=== PATIENT | male | born 1950 | race African-American/Black ===

== ENCOUNTER 2018-01-25 16:13 | Inpatient (IN) | payer OTHER ==
[~2018-01-25] VITALS: Ht 185.4 cm; Wt 110.4 kg
[2018-01-25] MEDS ORDERED: SODIUM CHLORIDE 0.9% 1000ML 1,000 ML IV STA ×2 (16:24→16:29)
[2018-01-25] MEDS ORDERED: CEFTRIAXONE SOD 1 GM VIAL IV ONE (16:30)
[2018-01-25] MEDS ORDERED: PHENAZOPYRIDINE HCL 100 MG TAB PO ONE (16:30)
[2018-01-25] MEDS ORDERED: ACETAMINOPHEN 325 MG TAB PO ONE (16:30)
[2018-01-25 17:01] LABS: BASOPHILS % 0.2 % (0.0-1.0); EOSINOPHILS % 0.2 % (0.0-6.0); HEMATOCRIT 37.9 % (38.2-49.6); HEMOGLOBIN 12.3 g/dL (14.0-18.0); LYMPHOCYTES # (AUTO) 0.5 (1.0-3.2); LYMPHOCYTES % 8.6 % (18.0-39.1); MEAN CORPUSCULAR HEMOGLOBIN 28.9 pg (28-32); MEAN CORPUSCULAR HGB CONC 32.5 g/dL (31-35); MEAN CORPUSCULAR VOLUME 89.2 fL (81-99); MONOCYTES # (AUTO) 0.9 (0.2-0.8); MONOCYTES % 15.3 % (4.4-11.3); NEUTROPHILS # (AUTO) 4.2 (2.1-6.9); NEUTROPHILS % 75.3 % (38.7-80.0); PLATELET COUNT 104 x10e3/uL (140-360); RED BLOOD COUNT 4.25 x10e6/uL (4.3-5.7); RED CELL DISTRIBUTION WIDTH 15.2 % (11.7-14.4)
[2018-01-25 17:04] LABS: BILIRUBIN,URINE NEGATIVE (NEGATIVE); CLARITY,URINE SL CLOUDY (CLEAR); COLOR,URINE YELLOW (YELLOW); KETONES,URINE NEGATIVE (NEGATIVE); LEUKOCYTE ESTERASE ,URINE TRACE (NEGATIVE); NITRITE,URINE NEGATIVE (NEGATIVE); PROTEIN,URINE DIPSTICK 1+ (NEGATIVE); URINE UROBILINOGEN 0.2 mg/dL (0.2 - 1)
[2018-01-25 17:14] LABS: BACTERIA,URINE FEW /HPF; EPITHELIAL CELLS,URINE FEW /LPF
[2018-01-25 17:20] LABS: ALBUMIN 3.1 g/dL (3.5-5.0); ALBUMIN/GLOBULIN RATIO 0.6 (0.8-2.0); ANION GAP 12.4 mmol/L (8-16); CALCIUM 9.4 mg/dL (8.4-10.2); CREATININE, SERUM 1.44 mg/dL (0.72-1.25); POTASSIUM 3.4 mmol/L (3.5-5.1)
[2018-01-25] MEDS ORDERED: CEFTRIAXONE SOD 1 GM VIAL IV SCH (18:30)
[2018-01-25] MEDS: SODIUM CHLORIDE 0.9% 1000ML 1,000 ML IV SCH (18:54)
[2018-01-25 20:00] VITALS: BP 149/86
[2018-01-25 20:13] VITALS: BP 149/86
[2018-01-26] VITALS (9 sets, daily range): BP systolic 131–150; BP diastolic 75–95
[2018-01-26] MEDS ORDERED: DICLOFENAC POTA50 MG PO (00:44)
[2018-01-26] MEDS ORDERED: VENLAFAXINE HCL75 M2 PO (00:44)
[2018-01-26] MEDS ORDERED: OMEPRAZOLE40 MG PO (00:44)
[2018-01-26] MEDS ORDERED: LISINOPRIL20 MG PO (00:44)
[2018-01-26] MEDS ORDERED: SIMVASTATIN40 MG PO (00:44)
[2018-01-26] MEDS ORDERED: METOPROLOL SUCC25 MG PO (00:44)
[2018-01-26] MEDS ORDERED: TYLENOL WITH C1 EACH PO (00:44)
[2018-01-26] MEDS ORDERED: MOTRIN200 MG PO (00:44)
[2018-01-26] MEDS: CEFTRIAXONE SOD 1 GM VIAL IV SCH ×2 (06:25→17:26)
[2018-01-26] MEDS: SODIUM CHLORIDE 0.9% 1000ML 1,000 ML IV SCH (08:24)
[2018-01-26] MEDS: PHENAZOPYRIDINE HCL 100 MG TAB PO SCH ×3 (08:24→17:26)
[2018-01-26] MEDS ORDERED: ACETAMINOPHEN/CODEINE 300MG - 30MG TAB PO PRN (09:00)
[2018-01-26] MEDS ORDERED: PANTOPRAZOLE SOD 40 MG TABEC PO PRN (09:00)
[2018-01-26] MEDS ORDERED: DIATRIZOATE MEGL/DIATRIZOA SOD 30 ML BTL PO ONE (09:07)
--- NOTE | 2018-01-26 09:37 | History and Physical ---
The patient is admitted on observation. PRIMARY CARE PHYSICIAN: Dr. Eusebia Coffman. CHIEF COMPLAINT: Fever and urinary frequency. HISTORY OF PRESENT ILLNESS: Patient is a 67-year-old male who came to the hospital with a fever. The fever started approximately last Wednesday. He came in with a temperature of 100.7. The patient was initiated on oral antibiotics outpatient, but did not improve. The patient is stable. He does have history of dyslipidemia and hypertension. The patient also has osteoarthritis. The fever has now broken. The urine culture is still pending. The patient is otherwise stable. PAST MEDICAL HISTORY: Hypertension, dyslipidemia, and osteoarthritis. PAST SURGICAL HISTORY: Noncontributory. SOCIAL HISTORY: Patient lives with his . He does not smoke or use alcohol. No recreational drugs. ALLERGIES: NO KNOWN ALLERGIES. HOME MEDICATIONS: List is reviewed. REVIEW OF SYSTEMS: Increasing urinary frequency, fever. No chest pain or shortness of breath. No abdominal pain. PHYSICAL EXAMINATION VITAL SIGNS: Temperature is 98. T-max on admission was 100.7. Pulse rate is 95. Respirations 18. Blood pressure 149/86. GENERAL: The patient is not in acute distress. He is awake. HEENT: Normocephalic, atraumatic. NECK: Supple grossly. PULMONARY: Clear bilaterally. CARDIOVASCULAR: Regular rate and rhythm. ABDOMEN: Soft, non-distention, no guarding. No rebound. Positive bowel sounds. EXTREMITIES: No cyanosis or edema. NEUROLOGIC: No focal deficit. Moving all extremities, awake, alert times 4. LABORATORY: Sodium 132, potassium 3.4, chloride 101, bicarb 22, BUN 14, creatinine 1.4, and glucose 113. WBC 5.5, hemoglobin 12, hematocrit 38, and platelets 104,000. Urinalysis: Cloudy urine with 1+ protein, 2+ blood. Negative nitrites. Leukocyte esterase trace. Bacteria few. IMPRESSIONS 1. Prostatitis associated with cystitis most likely. 2. Fever, resolved. 3. Electrolyte disorder mildly. Will be corrected. PLAN: Continue with Rocephin for now. Will obtain a CT scan of abdomen and pelvis without IV contrast. We will check the urine culture and narrow the antibiotics. Patient will remain on observation, she will be able to go home within 24 hours. Job#: [id number]
[2018-01-26] MEDS: METOPROLOL SUCCINATE 25 MG TAB XL PO SCH (09:52)
[2018-01-26] MEDS: SOD CHL 0.45%/POT CHL 20MEQ 1,000 ML IV SCH ×2 (09:52→18:31)
[2018-01-26] MEDS: VENLAFAXINE HCL 75 MG CAPCR PO SCH (09:52)
--- NOTE | 2018-01-26 11:38 | Diagnostic Imaging Report ---
PROCEDURE: CT ABDOMEN AND PELVIS WITHOUT CONTRAST TECHNIQUE: The abdomen and pelvis were scanned utilizing a multidetector helical scanner from the diaphragm to the lesser trochanter after the oral administration of Gastroview. Coronal and sagittal multiplanar reformations were obtained. COMPARISON: None. INDICATIONS: FEVER/ URINARY TRACT INFECTION FINDINGS: LOWER THORAX: Normal. HEPATOBILIARY: There is a 7.6 x 4.7 cm hypodense lesion in segment VII of the liver (series 2, image 18). This cannot be further characterized without intravenous contrast. No biliary ductal dilatation. SPLEEN: Spleen is mildly enlarged, measuring 14.9 cm in craniocaudal dimension. PANCREAS: No focal masses or ductal dilatation. ADRENALS: No adrenal nodules. KIDNEYS/URETERS: No hydronephrosis. Bilateral perinephric stranding is nonspecific. There is a 4.0 x 7.3 cm complex, lobulated cystic mass arising from the interpolar region of the left kidney (series 2, image 41). A 1.7 x 1.7 cm complex cystic lesion also arises from the interpolar region of the right kidney. A 4 mm nonobstructing stone is present in the upper pole of the left kidney (series 2, image 35). A 2 mm nonobstructing stone is present in the interpolar region of the left kidney (image 41). PELVIC ORGANS/BLADDER: Mild enlargement of the prostate. The bladder is grossly unremarkable. PERITONEUM / RETROPERITONEUM: No free air or fluid. LYMPH NODES: No lymphadenopathy. VESSELS: Moderator atherosclerotic calcifications of the aorta and its branches. GI TRACT: No distention or wall thickening. There are scattered sigmoid diverticula without evidence of acute inflammation. The appendix is normal. BONES AND SOFT TISSUES: Nonspecific sclerotic lesion in the right lateral sixth rib (series 2, image 14). Multilevel degenerative changes of the lower lumbar spine. L3 vertebral body hemangioma. IMPRESSION: 1. 7.3 cm complex cystic mass arising from the left kidney. This is suspicious for neoplasm but is not completely characterized on this examination. Recommend renal protocol CT or MRI (with and without contrast) for further evaluation. 2. 7.6 cm hypodense lesion in the right hepatic lobe. This is also not completely characterized. It is possible that we could obtain more information from the above mentioned renal protocol CT. Otherwise MRI would be necessary for evaluation. 3. Nonobstructing stones in the left kidney. 4. Nonspecific sclerotic lesion in the right sixth rib. Recommend attention on followup. Dictated by: Seun Deluca M.D. on 01/26/2018 at 11:44 Electronically approved by: Seun Deluca M.D. on 01/26/2018 at 11:44
[2018-01-26] MEDS: SIMVASTATIN 40 MG TAB PO SCH (20:06)
[2018-01-27] VITALS (8 sets, daily range): BP systolic 119–159; BP diastolic 65–96
[2018-01-27] MEDS: SOD CHL 0.45%/POT CHL 20MEQ 1,000 ML IV SCH (03:53)
[2018-01-27] MEDS: CEFTRIAXONE SOD 1 GM VIAL IV SCH ×2 (05:00→17:53)
[2018-01-27 05:42] LABS: BASOPHILS % 0.2 % (0.0-1.0); EOSINOPHILS % 0.4 % (0.0-6.0); HEMATOCRIT 37.1 % (38.2-49.6); HEMOGLOBIN 11.8 g/dL (14.0-18.0); LYMPHOCYTES # (AUTO) 0.9 (1.0-3.2); LYMPHOCYTES % 18.3 % (18.0-39.1); MEAN CORPUSCULAR HEMOGLOBIN 29.1 pg (28-32); MEAN CORPUSCULAR HGB CONC 31.8 g/dL (31-35); MEAN CORPUSCULAR VOLUME 91.4 fL (81-99); MONOCYTES # (AUTO) 0.5 (0.2-0.8); MONOCYTES % 9.8 % (4.4-11.3); NEUTROPHILS # (AUTO) 3.6 (2.1-6.9); NEUTROPHILS % 71.1 % (38.7-80.0); PLATELET COUNT 121 x10e3/uL (140-360); RED BLOOD COUNT 4.06 x10e6/uL (4.3-5.7); RED CELL DISTRIBUTION WIDTH 15.2 % (11.7-14.4)
[2018-01-27 06:15] LABS: ANION GAP 11.5 mmol/L (8-16); BLOOD UREA NITROGEN 13 mg/dL (7-26); BUN/CREATININE RATIO 10 (6-25); CALCIUM 9.2 mg/dL (8.4-10.2); CARBON DIOXIDE 27 mmol/L (22-29); CHLORIDE 104 mmol/L (98-107); CREATININE, SERUM 1.26 mg/dL (0.72-1.25); EST GLOMERULAR FILTRATION RATE > 60 ML/MIN (60-); GLUCOSE 94 mg/dL (74-118); POTASSIUM 4.5 mmol/L (3.5-5.1); SODIUM 138 mmol/L (136-145)
[2018-01-27] MEDS: VENLAFAXINE HCL 75 MG CAPCR PO SCH (08:43)
[2018-01-27] MEDS: PHENAZOPYRIDINE HCL 100 MG TAB PO SCH ×3 (08:43→17:53)
[2018-01-27] MEDS: METOPROLOL SUCCINATE 25 MG TAB XL PO SCH (08:43)
[2018-01-27] MEDS ORDERED: GADOBENATE DIMEGLUMINE 1 ML IV ONE (12:08)
--- NOTE | 2018-01-27 15:09 | Diagnostic Imaging Report ---
MRI abdomen CPT code: 81591 Indication: 4 days of hematuria, left renal mass on CT Technique: Axial T1 nonfat sat in and out of phase, axial T2 fat sat, coronal T2 nonfat sat, axial DWI and ADC MR images of the abdomen were obtained before and after the administration of 20 cc of gadolinium. Axial T1 fat sat GRE dynamic images in precontrast, arterial, venous and delayed phases were obtained. Comparison: CT abdomen/pelvis 01/25/2018 Findings: Pulse sequences are motion degraded. Liver: Solid, lobulated, high T2, low T1 signal mass in the posterior aspect of segment 7 measures 8.8 x 4.9 x 7.1 cm. After contrast demonstration, this exhibits peripheral, discontinuous, nodular enhancement with gradual fill-in consistent with a hemangioma. There is no evidence of washout. There are several scattered high T2, low T1 signal cysts in the parenchyma measuring up to 3 mm. Gallbladder: Present. No wall thickening, gallstone or ductal dilatation. Biliary tree: No intrahepatic biliary ductal dilatation. The common bile duct measures 3 mm in diameter and tapers as it approaches the ampulla. Pancreas: Normal T1 signal. Normal enhancement. No mass. Spleen: Measures 16 cm in length. The contours are rounded. No mass Adrenal glands: Poorly visualized due to motion degradation. There is mild thickening of the adrenal glands without discrete mass. Kidneys: Right kidney: Mildly lobulated contour. No hydronephrosis. High T1, low T2 signal lesion in the posterior interpolar cortex measures 1.7 x 2.1 cm. There is no evidence of enhancement on subtraction images consistent with a proteinaceous/hemorrhagic cyst. Left kidney: As seen on CT, an exophytic, solid, lobulated mass arising from the posterior interpolar cortex measures 7.3 x 7.5 x 8.2 cm. There are portions that extends to the renal sinus fat and portions that extends posteriorly towards the posterior perirenal space and approximates the transversalis fascia. This mass has heterogeneous enhancement and is surrounded by several collateral vessels. High T2, low T1 signal cyst in the anterior lower pole measures 2 cm without evidence of enhancement. No hydronephrosis. Renal arteries: A single artery supplies the left kidney and is patent. A single artery supplies the right kidney. Renal veins: Patent. Aorta: Mildly ectatic but normal in diameter. IVC: Patent. Lymph nodes: There are no enlarged periaortic or abdominal lymph nodes Bowel: Stomach and visualized portions of the small bowel and large bowel are normal in diameter with normal wall thickness. Peritoneum/retroperitoneum: No free fluid or fluid collection. Lung bases: No pleural effusions or infiltrates. The heart is normal in size. Bones: A high T2 high T1 signal lesion in L3 measures 3.1 cm. This loses signal on fat-suppressed sequence is suggestive of a hemangioma. Soft tissues: Unremarkable. IMPRESSION: 1. Large, fungating mass arising from the interpolar region of the left kidney with renal sinus invasion consistent with renal cell carcinoma. No evidence of renal vein or IVC invasion. 2. Simple cyst in the anterior lower pole of the left kidney. Proteinaceous/hemorrhagic cyst in the posterior right kidney. 3. Mass in segment 7 of the liver is suggestive of a cavernous hemangioma. 4. Splenomegaly. No evidence of lymphadenopathy given the motion degradation of this exam. Signed by: Dr. Venkat Sellers MD on 01/27/2018 3:06 PM
[2018-01-27] MEDS: SIMVASTATIN 40 MG TAB PO SCH (20:40)
[2018-01-28 00:15] VITALS: BP 158/86
[2018-01-28 04:40] VITALS: BP 136/72
[2018-01-28 05:03] LABS: BASOPHILS % 0.6 % (0.0-1.0); EOSINOPHILS % 0.6 % (0.0-6.0); HEMATOCRIT 39.3 % (38.2-49.6); HEMOGLOBIN 12.5 g/dL (14.0-18.0); LYMPHOCYTES # (AUTO) 1.1 (1.0-3.2); LYMPHOCYTES % 31.3 % (18.0-39.1); MEAN CORPUSCULAR HEMOGLOBIN 28.8 pg (28-32); MEAN CORPUSCULAR HGB CONC 31.8 g/dL (31-35); MEAN CORPUSCULAR VOLUME 90.6 fL (81-99); MONOCYTES # (AUTO) 0.4 (0.2-0.8); MONOCYTES % 11.9 % (4.4-11.3); NEUTROPHILS % 55.3 % (38.7-80.0); PLATELET COUNT 125 x10e3/uL (140-360); RED BLOOD COUNT 4.34 x10e6/uL (4.3-5.7); RED CELL DISTRIBUTION WIDTH 14.9 % (11.7-14.4)
[2018-01-28 05:28] LABS: ANION GAP 12.6 mmol/L (8-16); BLOOD UREA NITROGEN 10 mg/dL (7-26); BUN/CREATININE RATIO 8 (6-25); CALCIUM 9.3 mg/dL (8.4-10.2); CARBON DIOXIDE 27 mmol/L (22-29); CHLORIDE 102 mmol/L (98-107); EST GLOMERULAR FILTRATION RATE > 60 ML/MIN (60-); GLUCOSE 103 mg/dL (74-118); POTASSIUM 3.6 mmol/L (3.5-5.1); SODIUM 138 mmol/L (136-145)
[2018-01-28] MEDS: CEFTRIAXONE SOD 1 GM VIAL IV SCH (06:06)
[2018-01-28 08:00] VITALS: BP 138/76
[2018-01-28] MEDS: VENLAFAXINE HCL 75 MG CAPCR PO SCH (08:32)
[2018-01-28] MEDS: PHENAZOPYRIDINE HCL 100 MG TAB PO SCH ×2 (08:32→13:35)
[2018-01-28] MEDS: METOPROLOL SUCCINATE 25 MG TAB XL PO SCH (08:32)
[2018-01-28 09:35] VITALS: BP 138/76
[2018-01-28 12:00] VITALS: BP 139/92
[2018-01-28 16:00] VITALS: BP 145/85
--- NOTE | 2018-01-28 17:16 | Discharge Summary ---
PRIMARY CARE PHYSICIAN: Dr. Eusebia Coffman. FRYER OPERATOR: Dr. Leighton Cross. FINAL DIAGNOSES: 1. Urinary tract infection with prostatitis. 2. Finding of a large fungating mass in the left kidney with renal sinus invasion consistent with renal cell carcinoma. SUMMARY: Patient is a pleasant 67-year-old male. Presented to the hospital with fever and urinary tract infection. The patient is stable. Workup showed that the patient has a left renal mass as mentioned. Dr. Cross consulted. The patient is otherwise stable. Fever has resolved. His dehydration resolved as well. The patient is stable. BUN and creatinine resolved to 10 and 1.2 respectively. The patient has been cleared by Dr. Cross for discharge home. He will follow up with Dr. Cross as an outpatient for further management of the renal mass. The patient is stable, discharged home with Ceftin 500 mg twice a day for 14 days. Job#: [id number] ANA
[2018-01-28] MEDS ORDERED: CEFUROXIME500 MG PO (17:29)
== END 2018-01-28 17:50 | disposition home or self-care (01) | DRG 690 ==
LOC: ER 16:13 → ERHOLD 18:20 → IMCU 19:28 → OBSVTOIN 01-27 07:20 → MED/SURG2 01-27 11:42
PROVIDERS: ADMIT Internal Medicine; ATTEND Internal Medicine
DX: N30.01 Acute cystitis with hematuria (principal); N17.9 Acute kidney failure, unspecified; C64.2 Malignant neoplasm of left kidney, except renal pelvis; E87.1 Hypo-osmolality and hyponatremia; N41.9 Inflammatory disease of prostate, unspecified; E78.5 Hyperlipidemia, unspecified; R35.0 Frequency of micturition; E87.8 Other disorders of electrolyte and fluid balance, not elsewhere classified; D64.9 Anemia, unspecified; I12.9 Hypertensive chronic kidney disease with stage 1 through stage 4 chronic kidney disease, or unspecified chronic kidney disease; N18.9 Chronic kidney disease, unspecified; N20.0 Calculus of kidney; E86.0 Dehydration; E87.6 Hypokalemia
CPT/HCPCS: 36415; 74176; 74183; 80048; 80053; 81001; 83605; 85025; 87040; 87086; 94660; 99284; G0378; J0696; J7030